=== PATIENT | female | born 1955 | race Caucasian/White ===

== ENCOUNTER 2021-03-23 09:44 | Emergency (ER) | payer BC ==
[2021-03-23] MEDS ORDERED: Lidocaine 2% 20 ml MDV ONE (10:41)
[2021-03-23] MEDS ORDERED: Bacitracin 1 PK ONE (10:41)
== END 2021-03-23 10:50 | disposition home or self-care (01) ==
LOC: BURERS 09:44
DX: S61.012A Laceration without foreign body of left thumb without damage to nail, initial encounter (principal); Z87.891 Personal history of nicotine dependence; W26.0XXA Contact with knife, initial encounter
CPT/HCPCS: 12001